=== PATIENT | male | born 1970 | race Caucasian/White ===

== ENCOUNTER 2016-11-20 00:57 | Emergency (ER) | payer MEDICAID, OTHER ==
[~2016-11-20] VITALS: Ht 188 cm; Wt 85.0 kg
[~2016-11-20 00:57] MED LIST: ALFU1TAB10 PO; IBUP-232 PO; OXYC-360 PO; Z.0.NO CURRENT MEDS
[2016-11-20 00:59] VITALS: BP 139/97; PULSE 57; RESP 16; TEMP 97.6; O2SAT 98
[2016-11-20] MEDS ORDERED: CEPH-460 PO (01:22)
[2016-11-20] MEDS ORDERED: BACT800T5 PO (01:22)
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
[2016-11-20] MEDS ORDERED: CEPHALEXIN MONOHYDRATE 500 MG CAP PO ONE (01:30)
[2016-11-20] MEDS ORDERED: SULFAMETHOXAZOLE-TRIMETHOPRIM DS 800-160 MG TAB PO ONE (01:30)
== END 2016-11-20 02:08 | disposition home or self-care (01) ==
LOC: NEPB 00:57
DX: L73.9 Follicular disorder, unspecified (principal)
CPT/HCPCS: 99282